=== PATIENT | female | born 1955 | race Two or more races ===

== ENCOUNTER → 2024-09-11 | Outpatient (CLI) | payer OTHER, SELFPAY ==
--- NOTE | 2024-09-11 13:01 | XR_ITS ---
Examination: Left elbow 2 views Technique one AP lateral left elbow 2 views Exam date and time: September 11, 2024 1359 hours INDICATIONS: Post elbow injury and elbow surgery July 08, 2024 FINDINGS: Operative reduction internal fixation olecranon fracture Satisfactory alignment Moderate elbow osteoarthritis Large dystrophic area of ossification anterior to the elbow joint noticed on the lateral view, which appears to be primarily medially on the AP view IMPRESSION: Moderate elbow osteoarthritis Large dystrophic area of soft tissue ossification anterior and medial to the elbow
== END | disposition home or self-care (01) ==
LOC: CDIM 12:42
PROVIDERS: PCP Internal Medicine; Referring Provider Orthopaedic Surgery; Visit Provider Orthopaedic Surgery
DX: M19.022 Primary osteoarthritis, left elbow (principal); S59.902A Unspecified injury of left elbow, initial encounter; X58.XXXA Exposure to other specified factors, initial encounter
CPT/HCPCS: 73070

== ENCOUNTER → 2024-10-12 | Outpatient (CLI) | payer OTHER, SELFPAY ==
[2024-10-12 11:39] LABS: Alanine Aminotransferase 17 U/L (10-49); Albumin, Serum 4.3 gm/dL (3.4-4.8); Albumin/Globulin Ratio 1.4 (1.2-2.2); Alkaline Phosphatase 110 U/L (46-116); Anion Gap 9 (7-16); Aspartate Amino Transferase 25 U/L (0-34); BUN/Creatinine Ratio 23 Ratio (12-20); Bilirubin,Total 0.4 mg/dL (0.3-1.2); Blood Urea Nitrogen 14 mg/dL (9-23); Calcium 9.7 mg/dL (8.3-10.6); Calcium (Corrected) 9.7 mg/dL (8.5-10.1); Cardiac Risk Estimate 3.1 RATIO (3.7-5.6); Chloride 105 mMol/L (98-107); Cholesterol 214 mg/dL (132-200); Creatinine (Component) 0.6 mg/dL (0.6-1.3); Glucose 93 mg/dL (74-106); HDL Cholesterol 68 mg/dL (40-60); LDL Cholesterol,Calculated 112 mg/dL (0-130); Osmolality,Calculated 281 (275-295); Potassium 4.4 mMol/L (3.4-5.1); Sodium 141 mMol/L (136-145); Total Protein 7.3 gm/dL (5.7-8.2); Triglycerides 168 mg/dL (30-150); eGFR > 60 See Note
== END | disposition home or self-care (01) ==
LOC: COPL 10:02
PROVIDERS: PCP Internal Medicine; Referring Provider Internal Medicine; Visit Provider Internal Medicine
DX: E78.5 Hyperlipidemia, unspecified (principal)
CPT/HCPCS: 36415; 80053; 80061

== ENCOUNTER → 2024-10-22 | Outpatient (CLI) | payer OTHER, SELFPAY ==
--- NOTE | 2024-10-22 13:44 | XR_ITS ---
Examination: Clavicle 2 views Technique one AP lateral right elbow 2 views Exam date and time: October 22, 2024 1406 hrs. Comparison the 2024 Indications: Elbow surgery 3 months ago, unable to straighten elbow. Findings: Status post healed fracture olecranon Extensive dystrophic ossification bridges and immobilizes the elbow joint anteriorly No acute fracture Impression: Extensive dystrophic ossification bridges and immobilized the elbow joint anteriorly
== END | disposition home or self-care (01) ==
LOC: CDIM 13:07
PROVIDERS: PCP Internal Medicine; Referring Provider Orthopaedic Surgery; Visit Provider Orthopaedic Surgery
DX: M25.822 Other specified joint disorders, left elbow (principal); Z87.81 Personal history of (healed) traumatic fracture
CPT/HCPCS: 73070

== ENCOUNTER → 2025-07-20 | Outpatient (CLI) | payer OTHER, SELFPAY ==
--- NOTE | 2025-07-20 09:15 | XR_ITS ---
Examination: Screening digital mammography, bilateral Computer aided detection 3-D breast Tomosynthesis, bilateral Date and time of exam: July 20, 2025, 0925 hours, compared to mammograms dating to February 11, 2017 Indication: Screening Technique: Nonmagnified MLO, CC views of the breasts to been obtained, reconstructed from 3-D Tomosynthesis images. R2 computer aided detection program utilized for evaluation of suspicious masses and/or abnormal calcifications. 3-D Tomosynthesis images obtained. Findings: Scattered areas of fibroglandular density. Skin lesion inner left breast Intact implants Benign calcifications No interval suspicious masses Impression: BI-RADS category II: Benign Findings. Recommend 1 year follow-up mammogram.
[2025-07-20 12:05] LABS: Alanine Aminotransferase 17 U/L (10-49); Albumin, Serum 4.9 gm/dL (3.4-4.8); Alkaline Phosphatase 127 U/L (46-116); Anion Gap 11 (7-16); Aspartate Amino Transferase 30 U/L (0-34); BUN/Creatinine Ratio 20 Ratio (12-20); Bilirubin,Total 0.5 mg/dL (0.3-1.2); Blood Urea Nitrogen 14 mg/dL (9-23); Calcium 9.8 mg/dL (8.3-10.6); Calcium (Corrected) 9.8 mg/dL (8.5-10.1); Carbon Dioxide 26.4 mMol/L (20.0-31.0); Chloride 106 mMol/L (98-107); Creatinine (Component) 0.7 mg/dL (0.6-1.3); Glucose 89 mg/dL (74-106); Osmolality,Calculated 284 (275-295); Potassium 4.2 mMol/L (3.4-5.1); Sodium 143 mMol/L (136-145); eGFR > 60 See Note
[2025-07-20 13:41] LABS: Albumin/Globulin Ratio 1.4 (1.2-2.2); Globulin 3.4 gm/dL (2.3-3.5); Total Protein 8.3 gm/dL (5.7-8.2)
[2025-07-20 13:55] LABS: Cardiac Risk Estimate 3.3 RATIO (3.7-5.6); Cholesterol 234 mg/dL (132-200); HDL Cholesterol 71 mg/dL (40-60); LDL Cholesterol,Calculated 130 mg/dL (0-130); Triglycerides 165 mg/dL (30-150)
== END | disposition home or self-care (01) ==
PROVIDERS: Referring Provider Internal Medicine; Visit Provider Internal Medicine
DX: Z12.31 Encounter for screening mammogram for malignant neoplasm of breast (principal); R92.323 Mammographic fibroglandular density, bilateral breasts; R92.1 Mammographic calcification found on diagnostic imaging of breast; E78.5 Hyperlipidemia, unspecified
CPT/HCPCS: 36415; 77063; 77067; 80053; 80061